=== PATIENT | male | born 1955 | race Hispanic/Latino ===

== ENCOUNTER 2017-06-03 06:25 | Emergency (ER) | payer MEDICARE, MEDICAID ==
[~2017-06-03] VITALS: Ht 157.5 cm; Wt 72.7 kg
[~2017-06-03 06:25] MED LIST: GLUCOPHAGE850 MG PO; LEVEMIR FL100 UNIT/M SC; MOTRIN800 MG PO; ULTRAM50 M1 PO
[2017-06-03 07:55] LABS: HEMATOCRIT 42.5 % (39.0-50.0); HEMOGLOBIN 14.9 g/dl (14.0-18.0); IMMATURE GRANULOCYTES 0.4 % (0.0-1.0); MEAN CELL VOLUME 88.5 fL CALC (80.0-100.0); MEAN CORPUSCULAR HGB CONC 35.1 g/L CALC (32.0-36.0); NEUT# 3.66 thou/uL (1.82-7.42); RED BLOOD COUNT 4.8 mill/uL (4.70-6.10); RED CELL DISTRI WIDTH 11.7 % (11.5-15.5)
[2017-06-03 08:20] LABS: ALBUMIN 4.2 g/dL (3.2-5.0); ALKALINE PHOSPHATASE 106 u/l (38-126); ANION GAP 19 (6-22 (CALC)); BILIRUBIN, TOTAL 0.6 mg/dL (0.0-1.4); BUN 20 mg/dL (8-23); BUN/CREATININE RATIO 30 (12-20 (CALC)); CALCIUM 9.2 mg/dL (8.4-10.2); CARBON DIOXIDE 20 mmol/l (22-30); CHLORIDE 100 mmol/l (95-108); CREATININE 0.7 mg/dL (0.7-1.3); GFR > 60 ML/MIN (>=60 (CALC)); GFR FOR AFR.AMER. > 60 ML/MIN (>=60 (CALC)); GLUCOSE 394 mg/dL (82-115); POTASSIUM 4.5 mmol/l (3.5-5.1); SGOT/AST 27 u/l (19-48); SGPT/ALT 32 u/l (11-66); SODIUM 134 mmol/l (137-146); TOTAL PROTEIN 7.4 g/dL (6.3-8.2)
[2017-06-03] MEDS ORDERED: TRAMADOL HYDROC50 MG PO (08:42)
[2017-06-03] MEDS ORDERED: CIPROFLOXACN750 MG PO (08:42)
[2017-06-03] MEDS ORDERED: CIPROFLOXACIN0.2 % AS (08:42)
[2017-06-03 09:03] VITALS: BP 143/72
[2017-06-04] MEDS ORDERED: METFORMIN500 MG PO (18:20)
[2017-06-04] MEDS ORDERED: MELOXICAM7.5 MG PO (18:21)
[2017-06-04] MEDS ORDERED: ENALAPRIL5 MG PO (18:21)
[2017-06-04] MEDS ORDERED: LEVEMIR FL100 UNIT/M SC (18:22)
== END 2017-06-03 09:14 | disposition home or self-care (01) ==
LOC: ED 06:25
PROVIDERS: Emergency Medicine
DX: H60.502 Unspecified acute noninfective otitis externa, left ear (principal); R51 Headache; H92.02 Otalgia, left ear; E11.9 Type 2 diabetes mellitus without complications; Z79.4 Long term (current) use of insulin; B96.89 Other specified bacterial agents as the cause of diseases classified elsewhere

== ENCOUNTER 2017-06-04 16:09 | Observation (INO) | payer MEDICARE, MEDICAID ==
[~2017-06-04] VITALS: Ht 157.5 cm; Wt 74.0 kg
[~2017-06-04 16:09] MED LIST changes: +CIPROFLOXACIN0.2 % AS; +CIPROFLOXACN750 MG PO; +TRAMADOL HYDROC50 MG PO
--- NOTE | 2017-06-04 16:25 | NUR ---
EMS TO ER ROOM 12, TO BED
[2017-06-04 16:42] LABS: HEMATOCRIT 42.8 % (39.0-50.0); HEMOGLOBIN 15.2 g/dl (14.0-18.0); IMMATURE GRANULOCYTES 0.5 % (0.0-1.0); MEAN CELL VOLUME 88.4 fL CALC (80.0-100.0); MEAN CORPUSCULAR HGB 31.4 pG CALC (26.0-32.0); MEAN CORPUSCULAR HGB CONC 35.5 g/L CALC (32.0-36.0); NEUT# 4.94 thou/uL (1.82-7.42); RED BLOOD COUNT 4.84 mill/uL (4.70-6.10); RED CELL DISTRI WIDTH 11.5 % (11.5-15.5)
[2017-06-04 16:52] LABS: PROTHROMBIN TIME 10.9 SECONDS (9.0-12.5)
--- NOTE | 2017-06-04 16:52 | NUR ---
PAIN IS NOW 2/10, PATIENT SINUS JAVIER ON THE MONITOR. CALL HICKEY WITHIN REACH, WILL CONTINE TO MONITOR.
[2017-06-04 16:59] LABS: ALBUMIN 4.2 g/dL (3.2-5.0); ALKALINE PHOSPHATASE 117 u/l (38-126); ANION GAP 18 (6-22 (CALC)); BILIRUBIN, TOTAL 0.6 mg/dL (0.0-1.4); BUN 15 mg/dL (8-23); BUN/CREATININE RATIO 28 (12-20 (CALC)); CALCIUM 8.8 mg/dL (8.4-10.2); CARBON DIOXIDE 19 mmol/l (22-30); CHLORIDE 101 mmol/l (95-108); CREATININE 0.5 mg/dL (0.7-1.3); GFR > 60 ML/MIN (>=60 (CALC)); GFR FOR AFR.AMER. > 60 ML/MIN (>=60 (CALC)); GLUCOSE 239 mg/dL (82-115); LIPASE 119 u/l (23-300); POTASSIUM 4.1 mmol/l (3.5-5.1); SGOT/AST 20 u/l (19-48); SGPT/ALT 37 u/l (11-66); SODIUM 134 mmol/l (137-146); TOTAL PROTEIN 7.7 g/dL (6.3-8.2)
--- NOTE | 2017-06-04 17:00 | NUR ---
UNABLE TO OBTAIN MED LIST.
[2017-06-04 17:08] LABS: MYOGLOBIN 32 ng/mL (0 - 121)
--- NOTE | 2017-06-04 17:20 | NUR ---
PATIENT RESTING COMFORTABLY IN STRETCHER. AWARE OF PENDING LAB RESULTS. WILL CONTINUE TO MONITOR.
--- NOTE | 2017-06-04 18:10 | NUR ---
MEDICATION LIST RECIEVED FROM HEALTH DEPARTMENT. UNABLE TO VERIFY TIME OF LAST TAKEN OR DOSE WITH PATIENT.
[2017-06-04] MEDS ORDERED: METFORMIN500 MG PO (18:20)
[2017-06-04] MEDS ORDERED: MELOXICAM7.5 MG PO (18:21)
[2017-06-04] MEDS ORDERED: ENALAPRIL5 MG PO (18:21)
[2017-06-04] MEDS ORDERED: LEVEMIR FL100 UNIT/M SC (18:22)
--- NOTE | 2017-06-04 18:54 | NUR ---
REPORT GIVEN TO MIRANDA AYALA.
--- NOTE | 2017-06-04 19:24 | NUR ---
REPORT CALLED TO YANET.
--- NOTE | 2017-06-04 19:45 | NUR ---
FROM ER TO MED/SURG SCORTED BY MIRANDA AYALA. PT ABLE TO AMBULATE FROM STRETCHER TO STANDING SCALE THEN TO BED, ALERT AND ORIENTED X3, C/O LEFT STABBING, INTERMITTENT CHEST PAIN, WILL MEDICATE WITH MORPHINE PER MD ORDERS, UNSTEADY GAIT NOTED, PT USES A CANE, LUNGS CLEAR ON AUSCULTATION, STRONG PEDAL PULSES AND STRONG BILTA HAND TAR CHASER, ABD IS SOFT WITH ACTIVE BS X4QUAD, DENIES N/V, SOB, OR DIZZINESS AT THIS TIME, AFEBRILE, HR 61, BP 143/73, 97% ON ROOM AIR, RESP RATE 18 EVEN AND UNLABORED, STATES IS INSULIN DEPENDENT DIABETIC, DOES NOT REMEMBER NAME OF INSULIN TAKEN AT HOME, STATES USES SLIDING SCALE, STATES PRIMARY PHYSICIAN IS DR. REYES FROM [facility], LIVES WITH FRIENDS, DOES NOT DRIVE, STATES "I HAD A BOWEL MOVEMENT THIS MORNING," VOIDS PER URINAL, URINAL NOT INSPECTED YET, DENIES PROBLES WITH VOIDING, SKIN IS WARM, DRY, INTACT, AND ACYANOTIC, NO EDEMA NOTED, OR SKIN BREAKDOWN, MORALES HOSE ARE IN PLACE WITH NONSKID SOCKS, EXPLAINED SAFETY MEASURES, PLAN OF CARE, AND LABS, VOICES UNDERSTANDING, WILL CONTINUE TO MONITOR. CALL HICKEY IS AT REACH, FRIEND IS AT BEDSIDE.
[2017-06-04 19:55] VITALS: BP 143/73
--- NOTE | 2017-06-04 21:47 | NUR ---
PT C/O LEFT CHEST PAIN, STABBING, INTERMITTENT PAIN, RATES IT AT 8/10, MEDICATED WITH MORPHINE PER MD ORDERS.
[2017-06-05 00:34] LABS: URINE BILIRUBIN - DIPSTICK NEGATIVE (NEGATIVE); URINE BLOOD DIPSTICK NEGATIVE (NEGATIVE); URINE CLARITY CLEAR; URINE COLOR YELLOW; URINE GLUCOSE - DIPSTICK 500 mg/dL (NEGATIVE); URINE KETONE NEGATIVE (NEGATIVE); URINE LEUK ESTERASE NEGATIVE (NEGATIVE); URINE NITRITE - DIPSTICK NEGATIVE (Negative); URINE PROTEIN - DIPSTICK NEGATIVE (NEG-TRACE); URINE UROBILINOGEN - DIPSTICK 0.2 E.U./dL (0.2)
--- NOTE | 2017-06-05 01:20 | NUR ---
C/O LEFT CHEST PAIN, RATES IT AT 7/10, MEDICATED WITH MORPHINE, PT A/OX3, NO DISTRESS NOTED, SOME FACIAL GRIMACE NOTED. RESP EVEN AND UNLABORED, WILL CONTINUE TO MONITOR.
[2017-06-05 01:55] VITALS: BP 136/75
[2017-06-05 04:20] VITALS: BP 127/78
--- NOTE | 2017-06-05 04:27 | NUR ---
C/O INTERMITENT, STABBING LEFT CHEST PAIN, RATES IT AT 9/10, MILD DISTRESS NOTED WITH FACIAL GRIMACE AND GUARDING, RESP ARE UNLABORED, STATES "I FEEL THAT MY HEART IS BEATING FASTER AT TIMES." SB ON MONITOR PER ER, HR 56, MEDICATED WITH MORPHINE PER MD ORDERS, WILL CONTINUE TO REASSESS. CALL HICKEY IS AT REACH.
[2017-06-05 04:55] VITALS: BP 124/73
--- NOTE | 2017-06-05 04:56 | NUR ---
RT IN PT ROOM FOR EKG; PT C/O CHEST PAIN AT 10/10 RESP ARE LABORED, MIDLY DIAPHORETIC, TEMP 96.6 TYMPANIC, SB ON MONITOR, HR 51 PER ER, BP 124/73, 96% ON ROOM AIR, FACIAL GRIMACE NOTED AND GUARDING, C/O N/V. WILL NOTIFY DR. WISE OF PT STATUS. CALL HICKEY AT REACH. PREVIOUS TROP ARE NEGATIVE.
--- NOTE | 2017-06-05 05:20 | NUR ---
PT IS CRYING, STATES CHEST PAIN IS AT 10/10, FACIAL GRIMACE NOTED, AND GUARDING, RESP ARE MILDLY LABORED, WILL MEDICATE PER MD ORDERS. DR. CULVER, NEW ORDERS RECEIVED FOR ZOFRAN AND PROTONIX.
--- NOTE | 2017-06-05 05:49 | NUR ---
MEDICATED PT WITH ZOFRAN AND PROTONIX, MILD DISTRESS NOTED, FACIAL GRIMACE AND GUARDING NOTED, 50CC OF EMESIS NOTED, PT DENIES HX OF GERD, CALL HICKEY AT REACH WILL CONTINUE TO MONITOR.
[2017-06-05 07:39] VITALS: BP 135/70
--- NOTE | 2017-06-05 07:39 | NUR ---
BEDSIDE REPORT RECEIVED FROM MIRANDA HOLT. PT [place] SPEAKING ONLY. CUSTOM SKI MAKER REQUIRED. PLAN OF CARE DISCUSSED. REPORTING OF CONCERNS ENCOURAGED. PT REPORTS 6 ON PAIN SCALE TO LEFT CHEST, STABBING IN NATURE. MORPHINE IV ADMINISTERED SCHEDULED. CALL LIGHT REVIEWED AND IN REACH. PT STATES UNDERSTANDING.
[2017-06-05] MEDS ORDERED: LIPITOR20 MG PO (10:01)
[2017-06-05] MEDS ORDERED: TRAMADOL HCL50 MG PO (10:01)
[2017-06-05] MEDS ORDERED: BACTRIM DS1 TAB PO (10:01)
[2017-06-05 11:30] VITALS: BP 123/71
--- NOTE | 2017-06-05 12:32 | NUR ---
PT REPORTS NAUSEA, IV ZOFRAN ADMINISTERED BY MIRANDA MONTANA. WILL CONTINUE TO MONITOR.
--- NOTE | 2017-06-05 13:26 | NUR ---
PT REPORTS RELIEF OF NAUSEA AND PAIN. HERMINIA FRIAS TRANSLATING. PT STATES "I WANT TO GO HOME." DISCHARGE INSTRUCTIONS REVIEWED, PT STATES UNDERSTANDING.
== END 2017-06-05 13:52 | disposition home or self-care (01) ==
LOC: ED 16:09 → ED-I 16:34 → ED 18:56 → MS2 18:57
PROVIDERS: Family Medicine; Internal Medicine; ADMIT Internal Medicine; ATTEND Internal Medicine
DX: R07.89 Other chest pain (principal); I10 Essential (primary) hypertension; E11.65 Type 2 diabetes mellitus with hyperglycemia; E78.5 Hyperlipidemia, unspecified; H66.92 Otitis media, unspecified, left ear; B96.89 Other specified bacterial agents as the cause of diseases classified elsewhere; Z79.84 Long term (current) use of oral hypoglycemic drugs; Z79.4 Long term (current) use of insulin; Z87.891 Personal history of nicotine dependence
CPT/HCPCS: G0379; S0164

== ENCOUNTER 2019-02-19 08:08 | Emergency (ER) | payer MEDICARE, MEDICAID ==
[~2019-02-19] VITALS: Ht 157.5 cm; Wt 80.0 kg
[~2019-02-19 08:08] MED LIST changes: +BACTRIM DS1 TAB PO; +ENALAPRIL5 MG PO; +LIPITOR20 MG PO; +MELOXICAM7.5 MG PO; +METFORMIN500 MG PO; +TRAMADOL HCL50 MG PO
[2019-02-19] MEDS ORDERED: ULTRAM50 MG PO (09:00)
[2019-02-19] MEDS ORDERED: LISINOPRIL20 MG PO (09:00)
[2019-02-19 09:15] VITALS: BP 170/80
== END 2019-02-19 09:22 | disposition home or self-care (01) ==
LOC: ED 08:08
DX: S20.211A Contusion of right front wall of thorax, initial encounter (principal); E11.9 Type 2 diabetes mellitus without complications; W01.0XXA Fall on same level from slipping, tripping and stumbling without subsequent striking against object, initial encounter

== ENCOUNTER 2019-09-08 10:03 | Emergency (ER) | payer MEDICARE, MEDICAID ==
[~2019-09-08] VITALS: Ht 157.5 cm; Wt 75.0 kg
[~2019-09-08 10:03] MED LIST changes: +LISINOPRIL20 MG PO; +ULTRAM50 MG PO
[2019-09-08 10:44] LABS: HEMATOCRIT 44.9 % (39.0-50.0); HEMOGLOBIN 15.5 g/dl (14.0-18.0); IMMATURE GRANULOCYTES 0.3 % (0.0-5.0); MEAN CELL VOLUME 88.4 fL CALC (80.0-100.0); MEAN CORPUSCULAR HGB 30.5 pG CALC (26.0-32.0); MEAN CORPUSCULAR HGB CONC 34.5 g/L CALC (32.0-36.0); NEUT# 3.65 thou/uL (1.82-7.42); RED BLOOD COUNT 5.08 mill/uL (4.70-6.10); RED CELL DISTRI WIDTH 11.9 % (11.5-15.5)
[2019-09-08 11:02] LABS: ALBUMIN 4.3 g/dL (3.2-5.0); ALKALINE PHOSPHATASE 115 u/l (38-126); ANION GAP 14 (6-22 (CALC)); BILIRUBIN, TOTAL 0.7 mg/dL (0.0-1.4); BUN 16 mg/dL (8-23); BUN/CREATININE RATIO 25 (12-20 (CALC)); CHLORIDE 101 mmol/l (95-108); CREATININE 0.6 mg/dL (0.7-1.3); GFR > 60 ML/MIN (>=60 (CALC)); GFR FOR AFR.AMER. > 60 ML/MIN (>=60 (CALC)); LIPASE 98 u/l (23-300); POTASSIUM 4.3 mmol/l (3.5-5.1); SGOT/AST 21 u/l (19-48); SODIUM 135 mmol/l (137-146)
[2019-09-08 11:03] LABS: CARBON DIOXIDE 24 mmol/l (22-30)
[2019-09-08] MEDS ORDERED: MIRALAX3350 N1 PO (11:42)
[2019-09-08] MEDS ORDERED: ONDANSETRON4 MG PO (11:48)
[2019-09-08 12:10] VITALS: BP 126/74
== END 2019-09-08 12:10 | disposition home or self-care (01) ==
LOC: ED 10:03
PROVIDERS: Family Medicine
DX: R10.13 Epigastric pain (principal); R11.2 Nausea with vomiting, unspecified; E11.9 Type 2 diabetes mellitus without complications; Z79.84 Long term (current) use of oral hypoglycemic drugs

== ENCOUNTER 2022-05-11 21:31 | Emergency (ER) | payer MEDICARE, MEDICAID ==
[~2022-05-11] VITALS: Ht 157.5 cm; Wt 61.0 kg
[~2022-05-11 21:31] MED LIST changes: +MIRALAX3350 N1 PO; +ONDANSETRON4 MG PO
[2022-05-12 00:08] LABS: HEMATOCRIT 40.8 % (39.0-50.0); HEMOGLOBIN 14.1 g/dl (14.0-18.0); IMMATURE GRANULOCYTES 0.4 % (0.0-5.0); MEAN CELL VOLUME 90.3 fL CALC (80.0-100.0); MEAN CORPUSCULAR HGB 31.2 pG CALC (26.0-32.0); MEAN CORPUSCULAR HGB CONC 34.6 g/dL CAL (32.0-36.0); NEUT# 12.34 thou/uL (1.82-7.42); RED BLOOD COUNT 4.52 mill/uL (4.70-6.10)
[2022-05-12 00:26] LABS: ALBUMIN 3.9 g/dL (3.2-5.0); AMYLASE 79 u/l (30-110); ANION GAP 14 (6-22 (CALC)); BILIRUBIN, TOTAL 0.6 mg/dL (0.0-1.4); BUN 16 mg/dL (8-23); BUN/CREATININE RATIO 30 (12-20 (CALC)); CARBON DIOXIDE 24 mmol/l (22-30); CHLORIDE 102 mmol/l (95-108); CREATININE 0.5 mg/dL (0.7-1.3); GFR FOR AFR.AMER. > 60 ML/MIN (>=60 (CALC)); GFR OTHER RACES > 60 ML/MIN (>=60 (CALC)); LIPASE 233 u/l (23-300); POTASSIUM 4.1 mmol/l (3.5-5.1); SGOT/AST 21 u/l (19-48); SODIUM 136 mmol/l (137-146); TOTAL PROTEIN 7.4 g/dL (6.3-8.2)
[2022-05-12 00:35] LABS: ALKALINE PHOSPHATASE 173 u/l (38-126)
[2022-05-12 00:36] LABS: MYOGLOBIN 25 ng/mL (0 - 121)
[2022-05-12 00:58] LABS: URINE BILIRUBIN - DIPSTICK NEGATIVE (NEGATIVE); URINE BLOOD DIPSTICK TRACE-INTACT (NEGATIVE); URINE COLOR YELLOW; URINE GLUCOSE - DIPSTICK >=1000 mg/dL (NEGATIVE); URINE KETONE 40 mg/dL (NEGATIVE); URINE LEUK ESTERASE NEGATIVE (NEGATIVE); URINE PROTEIN - DIPSTICK NEGATIVE (NEG-TRACE); URINE SPECIFIC GRAVITY 1.015
[2022-05-12 01:02] LABS: URINE NITRITE - DIPSTICK NEGATIVE (Negative)
[2022-05-12] MEDS ORDERED: ONDANSETRON4 MG PO (01:36)
[2022-05-12] MEDS ORDERED: CIPROFLOXACN500 MG PO (01:36)
[2022-05-12 02:01] VITALS: BP 132/75
== END 2022-05-12 02:05 | disposition home or self-care (01) ==
LOC: ED 21:31
PROVIDERS: Emergency Medicine
DX: K29.70 Gastritis, unspecified, without bleeding (principal); E11.9 Type 2 diabetes mellitus without complications; Z79.84 Long term (current) use of oral hypoglycemic drugs; Z20.822 Contact with and (suspected) exposure to COVID-19
CPT/HCPCS: Q9967